=== PATIENT | female | born 1995 | race Caucasian/White ===

== ENCOUNTER 2018-10-12 12:47 | Emergency (ER) | payer MEDICAID ==
[~2018-10-12] VITALS: Ht 158.8 cm; Wt 60.0 kg
[2018-10-12] MEDS ORDERED: ONDANSETRON PF 4 MG/2 ML VIAL. IV ONE (13:15)
[2018-10-12] MEDS ORDERED: HYOSCYAMINE 0.125 MG TAB.RAPDIS PO ONE (13:15)
--- NOTE | 2018-10-12 13:15 | PHYS DOC ---
Past History Past Medical History: No Pertinent History Additional Past Surgical Histo: oral surgery Drug Use: None Adult General Chief Complaint Chief Complaint: FLANK PAIN HPI HPI Patient is a 23 year old female who presents with upper abdominal pain. Patient has had multiple previous episodes of this that usually lasts 20-30 minutes after a fatty meal or dining out. This particular one started approximately 3: 00 this morning. Patient had eaten eggs, beans, and tortillas for supper last night. This current discomfort is not leaving. No nausea or vomiting. No relief with apple juice that usually seems to quiet her previous episodes. Pain radiates to her right side as well as into her back. No diarrhea, but has noticed julio colored stools. Patient is approximately 6 months and breast-feeding. [] Review of Systems Review of Systems Constitutional: Denies fever or chills [] Eyes: Denies change in visual acuity, redness, or eye pain [] HENT: Denies nasal congestion or sore throat [] Respiratory: Denies cough or shortness of breath [] Cardiovascular: No chest pain or palpitations[] GI: See history of present illness[] : Denies dysuria or hematuria [] Musculoskeletal: Denies back pain or joint pain [] Integument: Denies rash or skin lesions [] Neurologic: Denies headache, focal weakness or sensory changes [] Endocrine: Denies polyuria or polydipsia [] All other systems were reviewed and found to be within normal limits, except as documented in this note. Allergies Allergies Allergies Coded Allergies Type Severity Reaction Last Updated Verified No Known Drug Allergies 10/12/18 No Physical Exam Physical Exam Constitutional: Well developed, well nourished, no acute distress, non-toxic appearance. [] HENT: Normocephalic, atraumatic, bilateral external ears normal, oropharynx moist, no oral exudates, nose normal. [] Eyes: PERRLA, EOMI, conjunctiva normal, no discharge. [] Neck: Normal range of motion, no tenderness, supple, no stridor. [] Cardiovascular:Heart rate regular rhythm, no murmur [] Lungs & Thorax: Bilateral breath sounds clear to auscultation [] Abdomen: Bowel sounds normal, soft, epigastric to right upper quadrant tenderness, no Hood sign, sits up without any significant difficulty. No rebound, no guarding, no rigidity, no hepato-or splenomegaly, no masses, no pulsatile masses. [] Skin: Warm, dry, no erythema, no rash. [] Back: No tenderness, no CVA tenderness. [] Extremities: No tenderness, no cyanosis, no clubbing, ROM intact, no edema. [] Neurologic: Alert and oriented X 3, normal motor function, normal sensory function, no focal deficits noted. [] Psychologic: Affect normal, judgement normal, mood normal. [] EKG EKG [] Radiology/Procedures Radiology/Procedures Examination: Ultrasound abdomen limited HISTORY: History of right upper quadrant pain COMPARISON: None available. Findings: The right lobe of the liver measures 14.4 cm in length. Multiple gallstones identified in the gallbladder , two of which are large. Examination is positive for ultrasonographic evidence of Hood's sign. The right kidney measures 10.3 cm in length. The visualized pancreas grossly appears unremarkable. Visualized IVC is within the normal limits of dimension. The common bile duct measures 4.8 mm in diameter IMPRESSION: 1. Cholelithiasis. Examination somewhat positive for ultrasonographic evidence of Hood's sign, however no evidence of pericholecystic fluid or gallbladder wall thickening identified to suggest acute cholecystitis.[] Course & Med Decision Making Course & Med Decision Making Pertinent Labs and Imaging studies reviewed. (See chart for details) ED course: Patient arrived, was placed in bed, in tolerated exam well. Patient did achieve significant relief with the medicines administered. After the return of the lab and imaging studies, these were discussed with the patient who voiced understanding. Options to include transfer for surgery versus follow- up with a surgeon since she is feeling much better were discussed with the patient and she opts for follow-up with the surgeons and she has childcare issues and the pain is significantly improved. Patient was discharged in improved condition. Medical decision making: Patient appears to have symptomatic cholelithiasis, with elevated liver enzymes. No evidence of pancreatitis, nor cholangitis, cholecystitis. No other intra-abdominal pathology is noted at this time.[] Dragon Disclaimer Dragon Disclaimer This electronic medical record was generated, in whole or in part, using a voice recognition dictation system. Departure Departure: Impression: Primary Impression: Symptomatic cholelithiasis Disposition: HOME, SELF-CARE Condition: GOOD Referrals: PCP,KEELEY (PCP) LOZADA,LEANDRO D MD Call to arrange follow-up Patient Instructions: Cholelithiasis Additional Instructions: Drink plenty of fluids, frequent small sips. No fatty foods, no milk, and no pepper for the next 48 hours. Eat a diet rich in carbohydrates with foods such as bananas, rice, applesauce, and toast. Follow-up with the surgeon in 48 hours. Return to the ER if worsening pain, unable to tolerate liquids, or any other concerns. Scripts Ondansetron Hcl (ZOFRAN) 4 Mg Tablet 1 TAB PO Q6HRS for nausea or vomiting, #20 TAB Prov: RAGHAV GUERRERO DO 10/12/18 Hyoscyamine Sulfate (LEVSIN) 0.125 Mg Tablet 0.125 MG PO QID for abd pain, #30 TAB Prov: RAGHAV GUERRERO DO 10/12/18 RAGHAV GUERRERO DO Oct 12, 2018 13:15
[2018-10-12] MEDS ORDERED: ONDANSETRON PF 4 MG/2 ML VIAL. ONE (13:17)
[2018-10-12 13:37] LABS: BASO % 0 % (0-3); EOS % 0 % (0-3); HEMATOCRIT 39.3 % (36.0-47.0); HEMOGLOBIN 13.5 g/dL (12.0-15.5); LYMPH # 0.7 x10^3/uL (1.0-4.8); LYMPH % 14 % (24-48); MEAN CORPUSCULAR HEMOGLOBIN 30 pg (25-35); MEAN CORPUSCULAR HGB CONC 34 g/dL (31-37); MEAN CORPUSCULAR VOLUME 88 fL (79-100); MONO # 0.5 x10^3/uL (0.0-1.1); MONO % 10 % (0-9); NEUT # 4.1 x10^3uL (1.8-7.7); NEUT % 76 % (31-73); PLATELET COUNT 297 x10^3/uL (140-400); RED BLOOD COUNT 4.46 x10^6/uL (3.50-5.40); RED CELL DISTRIBUTION WIDTH 12.6 % (11.5-14.5); WHITE BLOOD COUNT 5.4 x10^3/uL (4.0-11.0)
[2018-10-12 13:44] LABS: PREG TEST PT QUAL NEGATIVE (NEG)
[2018-10-12 13:53] LABS: CLARITY,URINE CLEAR; COLOR,URINE AMBER
[2018-10-12 13:53] LABS: ALBUMIN 4.1 g/dL (3.4-5.0); ALBUMIN/GLOBULIN RATIO 1.1 (1.0-1.7); CREATININE 0.6 mg/dL (0.6-1.0); GFR 121.8
[2018-10-12 13:54] LABS: BACTERIA,URINE MOD /HPF (0-FEW); BILIRUBIN,URINE SMALL (NEG); GLUCOSE,URINE NEG (NEG); NITRITE,URINE NEG (NEG); RBC,URINE RARE /HPF (0-2); SQUAMOUS EPITHELIAL CELL,UR FEW /LPF; UROBILINOGEN,URINE 0.2 mg/dL (0.2 mg/dL)
[2018-10-12 13:54] LABS: TOTAL BILIRUBIN 1.9 mg/dL (0.2-1.0)
--- NOTE | 2018-10-12 14:53 | RAD ---
Examination: Ultrasound abdomen limited HISTORY: History of right upper quadrant pain COMPARISON: None available. Findings: The right lobe of the liver measures 14.4 cm in length. Multiple gallstones identified in the gallbladder , two of which are large. Examination is positive for ultrasonographic evidence of Hood's sign. The right kidney measures 10.3 cm in length. The visualized pancreas grossly appears unremarkable. Visualized IVC is within the normal limits of dimension. The common bile duct measures 4.8 mm in diameter IMPRESSION: 1. Cholelithiasis. Examination somewhat positive for ultrasonographic evidence of Hood's sign, however no evidence of pericholecystic fluid or gallbladder wall thickening identified to suggest acute cholecystitis. Electronically signed by: Abhinav London MD (10/12/2018 2:48 PM) [id number]
[2018-10-12] MEDS ORDERED: ONDA4TAB7 PO (15:20)
[2018-10-12] MEDS ORDERED: HYOS0.1264 PO (15:20)
[2018-10-12 15:29] VITALS: BP 124/94
== END 2018-10-12 15:33 | disposition home or self-care (01) ==
LOC: ER 12:47
DX: K80.20 Calculus of gallbladder without cholecystitis without obstruction (principal); R74.8 Abnormal levels of other serum enzymes
CPT/HCPCS: 36415; 76705; 80053; 81001; 83690; 84703; 85025; 87086; 96374; 99284; J2405